=== PATIENT | male | born 1985 | race Caucasian/White ===

== ENCOUNTER 2018-10-20 01:03 | Emergency (ER) | payer SELFPAY ==
[~2018-10-20] VITALS: Ht 177.8 cm; Wt 79.4 kg
[2018-10-20 01:06] VITALS: BP 107/72
--- NOTE | 2018-10-20 01:10 | NUR ---
PT ALE VAUGHN. TAKEN TO BED 11
--- NOTE | 2018-10-20 01:13 | NUR ---
33 Y/O M BIBA. FOUND UNCONCIOUS IN HOTEL ROOM. AAO X4, SLOW TO RESPONSE. PER PT CONSUMED ALOCHOL, UNSURE OF WHAT ALCOHOL AND HOW MUCH WAS CONSUMED. DENIES ANY TRAUMA. BEDRAILS X2 UP FOR SAFETY. NOTIFIED. WILL CONTINUE TO MONITOR. DENIES PMH NKA
--- NOTE | 2018-10-20 02:30 | NUR ---
PT ASLEEP, AROUSABBLE TO NAME. BEDRAILS X2 UP. BED IN LOWEST POSTION.
--- NOTE | 2018-10-20 03:40 | NUR ---
PT AWAKE. AMBULATED TO RESTROOM. STEADY GAIT. VSS
--- NOTE | 2018-10-20 05:06 | NUR ---
PT ASLEEP IN BED. EASILY AROUSABLE TO NAME. BED IN LOWEST POSTION.
[2018-10-20 06:03] VITALS: BP 107/68
--- NOTE | 2018-10-20 06:03 | NUR ---
Patient discharged with v/s stable. Written and verbal after care instructions given and explained. Patient verbalized understanding. Ambulatory with steady gait. All questions addressed prior to discharge. Advised to follow up with PMD.
== END 2018-10-20 06:03 | disposition home or self-care (01) ==
LOC: MED 01:03
DX: F10.129 Alcohol abuse with intoxication, unspecified (principal)
CPT/HCPCS: 99283